=== PATIENT | female | born 1965 | race Caucasian/White ===

== ENCOUNTER 2016-03-24 22:15 | Emergency (ER) | payer OTHER ==
[2016-03-24] MEDS ORDERED: LORazepam 1 MG TABLET PO ONE ×2 (22:30→22:31)
--- NOTE | 2016-03-24 22:57 | ED Physician Documentation ---
General Adult - HISTORIAN Historian: patient - HPI Stated Complaint: High Blood Pressure Chief Complaint: General Adult Onset: hours Timing: still present Severity: moderate Further Comments: yes (Pt is a 51 with c/o high blood pressure readings at home. Pt has had a headache. Pt notes that she has been under a lot of stress lately and is anxious and wonders if this is contributing to her high bp. Pt has been frequently checking her bp as part of her anxiety she says.) - ROS CONST: no problems EYES/ENT: none CVS/RESP: none GI/: none NEURO/PSYCH: headache - PAST HX Past History: other (HTN, Hypothyroidism, DM, ) Surgeries/Procedures: BTL Allergies/Adverse Reactions: Allergies Allergy/AdvReac Type Severity Reaction Status Date / Time No Known Allergies Allergy Unverified 03/24/16 22:25 Home Medications: Ambulatory Orders Medication Instructions Recorded Enalapril Maleate [Enalapril 20 mg PO DAILY 03/24/16 Maleate] Insulin Glargine,Hum.rec.anlog 03/24/16 [Lantus] Insulin Lispro [Humalog] 03/24/16 Levothyroxine Sodium [Unithroid] 175 mcg PO DAILY 03/24/16 Montelukast Sodium [Singulair] 10 mg PO HS 03/24/16 - SOCIAL HX Smoking History: cigarettes - FAMILY HX Family History: No - VITAL SIGNS Vital Signs: Vital Signs Temp Pulse Resp BP Pulse Ox 98 F 66 18 184/81 99 03/24/16 22:15 03/24/16 22:15 03/24/16 22:15 03/24/16 22:15 03/24/16 22:15 - REVIEWED ASSESSMENTS Nursing Assessment Reviewed: Yes Vitals Reviewed: Yes Progress - Progress Progress: Ativan 1 mg po BP 184/81-->145/65 improved. Pt will see her pcp in am and discuss anxiety and bp. ED Results Lab/Radiology - Orders Orders: ED Orders Category Date Time Status LORazepam [Ativan] Med 03/24/16 22:31 Discontinued 1 mg PO .STK-MED ONE General Adult Physical Exam - PHYSICAL EXAM GENERAL APPEARANCE: mild distress EENT: eye inspection normal, ENT inspection normal, pharynx normal NECK: normal inspection, supple RESPIRATORY: no resp distress, chest non-tender, breath sounds normal CVS: reg rate & rhythm, heart sounds normal BACK: normal inspection, no CVA tenderness SKIN: warm/dry, normal color EXTREMITIES: non-tender, normal range of motion, no evidence of injury, no edema NEURO: oriented X3, CN's nml as tested, motor nml, sensation nml Discharge Clincal Impression: Elevated blood pressure Home Medications: Ambulatory Orders Enalapril Maleate [Enalapril Maleate] 20 mg PO DAILY 03/24/16 Insulin Glargine,Hum.rec.anlog [Lantus] 03/24/16 Insulin Lispro [Humalog] 03/24/16 Levothyroxine Sodium [Unithroid] 175 mcg PO DAILY 03/24/16 Montelukast Sodium [Singulair] 10 mg PO HS 03/24/16 Condition: Good Disposition: 01 HOME, SELF-CARE Decision to Admit: NO Decision Time: 23:00
[2016-03-24 23:11] VITALS: BP 149/61
== END 2016-03-24 23:10 | disposition home or self-care (01) ==
LOC: ED 22:15
DX: I10 Essential (primary) hypertension (principal); E11.9 Type 2 diabetes mellitus without complications; E03.9 Hypothyroidism, unspecified; R51 Headache
CPT/HCPCS: 99282